=== PATIENT | female | born 1960 | race Caucasian/White ===

== ENCOUNTER 2017-04-02 18:20 | Emergency (ER) | payer MEDICAID ==
[2017-04-02 19:12] LABS: BASOPHILS 0.2 % (0-2); EOSINOPHILS 1.7 % (0-7); HEMATOCRIT 42.9 % (36.0-48.0); HEMOGLOBIN 14.3 g/dL (12-16); IMMATURE GRANULOCYTES 0.2 % (0-5); LYMPHOCYTES 24.1 % (15-50); MCH 31.7 pg (26.0-34.0); MCHC 33.3 g/dL (31.0-37.0); MCV 95.1 fL (80.0-100.0); MEAN PLATELET VOLUME 11.2 fL (7.4-10.4); MONOCYTES 8.5 % (2-11); NEUTROPHILS 65.3 % (40-80); PLATELET COUNT 270 10x3/uL (130-400); RBC 4.51 10x6/uL (4.00-5.40); RDW 14.5 % (11.5-14.5); WBC 12.8 10x3/uL (4.8-10.8)
[2017-04-02 19:30] LABS: ALBUMIN 3.8 g/dL (3.4-5.0); ALKALINE PHOSPHATASE 121 U/L (46-116); ALT (SGPT) 18 U/L (10-68); AMYLASE - SERUM 63 U/L (25-115); CALC OSMOLALITY 272 mosm/kg (275-300); CALCIUM 8.9 mg/dL (8.5-10.1); CARBON DIOXIDE 21.1 mmol/L (21.0-32.0); CHLORIDE - SERUM 101 mmol/L (98-107); CREATINE KINASE 38 UL (21-215); CREATININE - SERUM 1.1 mg/dL (0.6-1.3); GLUCOSE 117 mg/dL (74-106); LIPASE 99 U/L (73-393); POTASSIUM - SERUM 3.7 mmol/L (3.5-5.1); PROTEIN - SERUM 7.4 g/dL (6.4-8.2); SODIUM 135 mmol/L (136-145); TROPONIN-I < 0.017 ng/mL (0.000-0.060); UREA NITROGEN 19 mg/dL (7-18); eGFR NON AFRICAN AMERICAN 55 mL/min (90-120)
[2017-04-02 20:38] LABS: APPEARANCE CLOUDY (CLEAR); BILIRUBIN NEGATIVE (NEGATIVE); COLOR YELLOW (YELLOW); GLUCOSE NEGATIVE (NEGATIVE); KETONE NEGATIVE (NEGATIVE); LEUKOCYTE ESTERASE NEGATIVE (NEGATIVE); NITRITE NEGATIVE (NEGATIVE); PROTEIN NEGATIVE (NEGATIVE); SPECIFIC GRAVITY 1.005 (1.005-1.020); UROBILINOGEN NORMAL (NORMAL)
== END 2017-04-02 20:50 | disposition home or self-care (01) ==
LOC: D.ER 18:20
PROVIDERS: Nurse Practitioner Family
DX: K52.9 Noninfective gastroenteritis and colitis, unspecified (principal); E86.0 Dehydration; I10 Essential (primary) hypertension; R10.9 Unspecified abdominal pain; F17.200 Nicotine dependence, unspecified, uncomplicated; R00.1 Bradycardia, unspecified

== ENCOUNTER 2017-05-03 22:14 | Emergency (ER) | payer MEDICAID ==
[2017-05-03 23:39] LABS: BASOPHILS 0.5 % (0-2); EOSINOPHILS 2.2 % (0-7); HEMATOCRIT 43.7 % (36.0-48.0); HEMOGLOBIN 14.8 g/dL (12-16); IMMATURE GRANULOCYTES 0.3 % (0-5); LYMPHOCYTES 47.3 % (15-50); MCH 31.6 pg (26.0-34.0); MCHC 33.9 g/dL (31.0-37.0); MCV 93.2 fL (80.0-100.0); MEAN PLATELET VOLUME 11.5 fL (7.4-10.4); MONOCYTES 7.1 % (2-11); NEUTROPHILS 42.6 % (40-80); PLATELET COUNT 259 10x3/uL (130-400); RBC 4.69 10x6/uL (4.00-5.40); RDW 14.2 % (11.5-14.5); WBC 6.5 10x3/uL (4.8-10.8)
[2017-05-03 23:55] LABS: ALBUMIN 4.1 g/dL (3.4-5.0); ALKALINE PHOSPHATASE 112 U/L (46-116); ALT (SGPT) 18 U/L (10-68); CALC OSMOLALITY 278 mosm/kg (275-300); CALCIUM 9.3 mg/dL (8.5-10.1); CHLORIDE - SERUM 105 mmol/L (98-107); GLUCOSE 126 mg/dL (74-106); PROTEIN - SERUM 7.6 g/dL (6.4-8.2); SODIUM 139 mmol/L (136-145); UREA NITROGEN 11 mg/dL (7-18); eGFR NON AFRICAN AMERICAN 61 mL/min (90-120)
[2017-05-04 00:06] LABS: CREATINE KINASE 35 UL (21-215); TROPONIN-I < 0.017 ng/mL (0.000-0.060)
== END 2017-05-04 01:23 | disposition home or self-care (01) ==
LOC: D.ER 22:14
PROVIDERS: Family Medicine
DX: I10 Essential (primary) hypertension (principal); R51 Headache

== ENCOUNTER 2017-05-08 11:04 | Emergency (ER) | payer MEDICAID | END 2017-05-08 12:54 | disposition home or self-care (01) | LOC: D.ER 11:04 | DX: I10 Essential (primary) hypertension (principal); R00.0 Tachycardia, unspecified; F17.200 Nicotine dependence, unspecified, uncomplicated ==

== ENCOUNTER 2017-06-12 19:47 | Observation (INO) | payer MEDICAID ==
[2017-06-12 20:59] LABS: BASOPHILS 0.3 % (0-2); EOSINOPHILS 2.2 % (0-7); HEMATOCRIT 39.1 % (36.0-48.0); HEMOGLOBIN 13.5 g/dL (12-16); IMMATURE GRANULOCYTES 0.3 % (0-5); LYMPHOCYTES 17.8 % (15-50); MCH 31.5 pg (26.0-34.0); MCHC 34.5 g/dL (31.0-37.0); MCV 91.4 fL (80.0-100.0); MEAN PLATELET VOLUME 11.3 fL (7.4-10.4); MONOCYTES 7.3 % (2-11); NEUTROPHILS 72.1 % (40-80); PLATELET COUNT 257 10x3/uL (130-400); RBC 4.28 10x6/uL (4.00-5.40); RDW 13.5 % (11.5-14.5); WBC 10.1 10x3/uL (4.8-10.8)
[2017-06-12 21:06] LABS: ALBUMIN 3.8 g/dL (3.4-5.0); ANION GAP 17.6 mmol/L (8-16); BILIRUBIN - TOTAL 0.45 mg/dL (0.2-1.3); CALCIUM 9.5 mg/dL (8.5-10.1); CREATININE - SERUM 2.1 mg/dL (0.6-1.3); POTASSIUM - SERUM 3.6 mmol/L (3.5-5.1); PROTEIN - SERUM 7.2 g/dL (6.4-8.2)
[2017-06-12 22:00] LABS: INR 0.94 (0.85-1.17); PROTIME 12.5 SECONDS (11.6-15.0)
[2017-06-12 22:40] LABS: APPEARANCE HAZY (CLEAR); BILIRUBIN NEGATIVE (NEGATIVE); COLOR DK YELLOW (YELLOW); GLUCOSE 100 mg/dL (NEGATIVE); KETONE NEGATIVE (NEGATIVE); NITRITE NEGATIVE (NEGATIVE); PROTEIN NEGATIVE (NEGATIVE); UROBILINOGEN NORMAL (NORMAL)
[2017-06-12 22:41] LABS: BACTERIA MANY /hpf (NONE SEEN); WHITE CELLS - URINE 0-5 /hpf (0-5)
[2017-06-12 22:45] LABS: UDS - AMPHET NEGATIVE QUAL (NEGATIVE); UDS - BARB NEGATIVE QUAL (NEGATIVE); UDS - BENZO POSITIVE QUAL (NEGATIVE); UDS - COCAINE NEGATIVE QUAL (NEGATIVE); UDS - OPIATE NEGATIVE QUAL (NEGATIVE); UDS - PCP NEGATIVE QUAL (NEGATIVE); UDS - THC NEGATIVE QUAL (NEGATIVE)
--- NOTE | 2017-06-12 23:29 | NUR ---
PT RECEIVED FROM ER, IV-REJ-NS @125, BEING ADMITTED TO DR. LOMBARDI, COMPLAINS OF AB. PAIN AND N/V, PT IS A&O,X3, BED IS LOW, SRX2, CALL LIGHT IN REACH, WILL CONTINUE PLAN OF CARE
[2017-06-12] MEDS ORDERED: XANAX1 MG PO (23:31)
[2017-06-12] MEDS ORDERED: NORVASC10 MG PO (23:32)
[2017-06-12] MEDS ORDERED: CATAPRES0.2 MG PO (23:34)
[2017-06-12] MEDS ORDERED: LISINOPRIL-HCTZ1 T13 PO (23:35)
[2017-06-12] MEDS ORDERED: ASPIRIN325 MG PO (23:37)
[2017-06-13] VITALS: BP 79/44
[2017-06-13 04:00] VITALS: BP 84/46
[2017-06-13 06:03] LABS: BASOPHILS 0.6 % (0-2); HEMATOCRIT 32.5 % (36.0-48.0); IMMATURE GRANULOCYTES 0.2 % (0-5); LYMPHOCYTES 33.4 % (15-50); MCHC 33.8 g/dL (31.0-37.0); MCV 91.5 fL (80.0-100.0); MEAN PLATELET VOLUME 11.4 fL (7.4-10.4); NEUTROPHILS 52.8 % (40-80); RBC 3.55 10x6/uL (4.00-5.40); RDW 13.6 % (11.5-14.5)
[2017-06-13 06:13] LABS: PLATELET COUNT 187 10x3/uL (130-400); WBC 6.5 10x3/uL (4.8-10.8)
[2017-06-13 06:21] LABS: ANION GAP 14.5 mmol/L (8-16); CALCIUM 7.9 mg/dL (8.5-10.1); CARBON DIOXIDE 19.9 mmol/L (21.0-32.0); POTASSIUM - SERUM 3.4 mmol/L (3.5-5.1)
[2017-06-13 06:24] LABS: CREATININE - SERUM 1.5 mg/dL (0.6-1.3)
--- NOTE | 2017-06-13 07:15 | NUR ---
RECIEVED REPORT ON PATIENT, PATIENT IS ALERT AND ORIENTED AT THIS TIME. PATIENT LAYING IN BED, PATIENT HAS A R EJ IV THAT IS INFUSING WITH NS AT 125ML/HR. PATIENT DENIES ANY PAIN OR NEEDS. BED IS LOW AND LOCKED AT THIS TIME. CALL LIGHT IN REACH. CPOC
[2017-06-13 08:00] VITALS: BP 112/59
--- NOTE | 2017-06-13 08:58 | NUR ---
PAGED DR BRAY FOR CONSULT
--- NOTE | 2017-06-13 11:08 | NUR ---
SPOKE WITH DR BRAY OFFICE REGARDING CONSULT
[2017-06-13 12:00] VITALS: BP 87/50
--- NOTE | 2017-06-13 14:26 | NUR ---
PATIENT ANXIOUS ABOUT GETTING TO GO TO EGD THIS AFTERNOON, STATES SHE IS HUNGRY AND WANTING TO EAT, HAVE EDUCATED PATIENT THAT SHE CAN NOT EAT AT THIS TIME, STATES UNDERSTANDING. CPOC
[2017-06-13 16:00] VITALS: BP 115/61
--- NOTE | 2017-06-13 16:30 | NUR ---
PATIENT GONE TO GI LAB. CPOC
--- NOTE | 2017-06-13 17:40 | NUR ---
PATIENT BACK FROM GI LAB. WAITING ON DINNER, WILL GET TRAY. CPOC
--- NOTE | 2017-06-13 18:34 | NUR ---
PATIENT EATING DINNER AT THIS TIME, TOLERATING. DENIES ANY NEEDS. CPOC
--- NOTE | 2017-06-13 19:39 | NUR ---
ASSESSMENT COMPLETE, A&O, RESPERATIONS EVEN ON RA. NS INFUSING AT 125 CC/HR TO RIGHT EJ, SITE CLEAN AND DRY. PT DENIES PAIN OR NEEDS, BED LOW, CL IN REACH.
--- NOTE | 2017-06-13 21:23 | NUR ---
HS MEDDS GIVEN WITH FRESH ICE WATER, PT DENIES PAIN OR NEEDS, BED LOW, CL IN REACH.
[2017-06-13 22:18] VITALS: BP 90/46
[2017-06-14 02:50] VITALS: BP 116/66
--- NOTE | 2017-06-14 03:12 | NUR ---
CALLED TO ROOM, PT ASKING FOR PAIN AND NAUSEA MEDICATION, INOFRMED HER THAT BOTH WERE GIVEN RIGHT BEFORE 01:00 AND THAT IT IS TOO SOON TO GIVEN THEM AGAIN, PT STATING THAT SHE NEEDS TO REST, OFFERED PT ATIVAN, STATING THAT IT WILL HELP HER RELAX AND GET SOME REST, PT AGREED, ATIVAN 0.5 GIVEN TO RIGHT EJ. PT THEN AKING IF SHE CAN IF HER FLUIDS CAN BE SHUT OFF SINCE SHE IS DRINKING WELL AND THAT HER URINE IS NO LONGE DARK, INFORMED HER THAT SHE NEEDS FLUIDS DUE TO HER BEING DEHYDRATED AND TO KEEP THE IV OPEN BECAUSE IF ITS SL THEN IF CAN CLOT OFF AND THE WOULD NO LONGER TO BE USE, PT INSISTED THAT THE IV IS VERY ANNOYING AND THAT SHE WANTS IT TURNED OFF. RIGHT EJ SL.
[2017-06-14 05:30] LABS: BASOPHILS 0.7 % (0-2); EOSINOPHILS 3.6 % (0-7); HEMATOCRIT 31.9 % (36.0-48.0); HEMOGLOBIN 10.7 g/dL (12-16); IMMATURE GRANULOCYTES 0.2 % (0-5); LYMPHOCYTES 34.5 % (15-50); MCH 31.1 pg (26.0-34.0); MCHC 33.5 g/dL (31.0-37.0); MCV 92.7 fL (80.0-100.0); MEAN PLATELET VOLUME 11.6 fL (7.4-10.4); MONOCYTES 7.6 % (2-11); NEUTROPHILS 53.4 % (40-80); PLATELET COUNT 181 10x3/uL (130-400); RBC 3.44 10x6/uL (4.00-5.40); WBC 5.8 10x3/uL (4.8-10.8)
[2017-06-14 05:35] VITALS: BP 122/68
[2017-06-14 05:41] LABS: ANION GAP 11.3 mmol/L (8-16); CALCIUM 7.9 mg/dL (8.5-10.1); CARBON DIOXIDE 21.1 mmol/L (21.0-32.0); POTASSIUM - SERUM 3.4 mmol/L (3.5-5.1)
--- NOTE | 2017-06-14 07:58 | NUR ---
AM ROUNDS - PT IN BED AND AWAKE AT THIS TIME. IV TO RIGHT EJ, SL. PT REFUSES TO HAVE NS FLUIDS CONNECTED. STATES SHE BELIEVES SHE ID DRINKING ENOUGH AND NOT THROWING IT UP. ALSO STATES THAT HER URINE IS NOT DARK IN COLOR. PT IS UP AD MAXIMILIAN. PT IS ON ROOM AIR. PT IS A&O. NO NEEDS AT THIS TIME. WILL CONTINUE TO MONITOR
[2017-06-14 08:32] VITALS: BP 126/71
[2017-06-14] MEDS ORDERED: PROTONIX40 MG PO (09:20)
--- NOTE | 2017-06-14 12:21 | NUR ---
D/C - WRITTEN AND VERBAL D/C INSTRUCTIONS GIVEN TO PT. RIGHT EJ REMOVED, APPLIED PRESSURE AND APPLIED 2X2 AND SECURED WITH TAPE. CATH TIP INTACT. PT TOLERATED WELL. PT LEFT FLOOR VIA WHEELCHAIR WITH VOLUNTEER. WILL D/C
== END 2017-06-14 12:24 | disposition home or self-care (01) ==
LOC: D.ER 19:47 → D.M2 22:55 → OBSVTIME 22:55 → D.M2 06-14 12:24
PROVIDERS: Emergency Medicine; Internal Medicine Gastroenterology; ADMIT Family Medicine
DX: K29.01 Acute gastritis with bleeding (principal); K26.4 Chronic or unspecified duodenal ulcer with hemorrhage; D62 Acute posthemorrhagic anemia; K44.9 Diaphragmatic hernia without obstruction or gangrene; N17.9 Acute kidney failure, unspecified; I95.9 Hypotension, unspecified; I10 Essential (primary) hypertension; I69.919 Unspecified symptoms and signs involving cognitive functions following unspecified cerebrovascular disease; Z72.0 Tobacco use; F41.8 Other specified anxiety disorders